=== PATIENT | male | born 1980 | race Caucasian/White ===

== ENCOUNTER 2017-04-14 12:49 | Emergency (ER) | payer OTHER ==
[2017-04-14] MEDS ORDERED: MOTRIN 600 MG ONE (13:36)
--- NOTE | 2017-04-14 13:51 | ERPHSYRPT ---
- History of Present Illness Time Seen by Provider: 04/14/17 13:21 Source: patient Patient Subjective Stated Complaint: Pt states "My left shoulder has been going in and out for the past two years and last night I was moving stuff and I felt something tear and now it really hurts." Triage Nursing Assessment: PT alert and oriented X 3, skin pwd. pt ambulates without difficulty, able to speak in clear full sentences. PT left shoulder has slight swelling noted anterioroly, csm X 4, tender to touch Physician History: CC: left shoulder injury Hx: 36 y/o patient recently moved here from [place]. He is working at [employer] and hopes to transfer to the [employer]. His 's family lives here and needed help. He has had shoulder pain in the past. Last night was carrying something and had pain and a pop in the left posterior shoulder. No N/T/W. He does not like shots or needles. No prior shoulder surgery. No other injuries. Occurred: yesterday Severity of Pain-Max: moderate Severity of Pain-Current: moderate Extremities Pain Location: shoulder: left Allergies/Adverse Reactions: No Known Drug Allergies Allergy (Unverified 04/14/17 13:20) Hx Tetanus, Diphtheria Vaccination/Date Given: Yes Hx Influenza Vaccination/Date Given: No Hx Pneumococcal Vaccination/Date Given: No Immunizations Up to Date: Yes - Review of Systems Constitutional: No Symptoms Respiratory: No Dyspnea Abdominal/Gastrointestinal: No Nausea, No Vomiting Musculoskeletal: Injury (left posterior shoulder), No Back Pain, No Neck Pain Neurological: No Focal Weakness, No Headache, No Parasthesia - Past Medical History Pertinent Past Medical History: No - Past Surgical History Past Surgical History: No - Social History Smoking Status: Current every day smoker How long have you smoked: 20 year Exposure to second hand smoke: Yes Drug Use: none Patient Lives Alone: No - Nursing Vital Signs Nursing Vital Signs: Initial Vital Signs Temperature 98.2 F 04/14/17 13:15 Pulse Rate 84 04/14/17 13:15 Respiratory Rate 16 04/14/17 13:15 Blood Pressure 138/73 04/14/17 13:15 O2 Sat by Pulse Oximetry 100 04/14/17 13:15 Pain Scale Pain Intensity 4 - Physical Exam General Appearance: alert Eyes, Ears, Nose, Throat Exam: moist mucous membranes Neck Exam: normal inspection, non-tender, supple Cardiovascular/Respiratory Exam: chest non-tender, normal breath sounds, regular rate/rhythm Abdominal Exam: non-tender, soft Back Exam: normal inspection, No vertebral tenderness Shoulder Exam: swelling (left trapezius area, knotted muscle, limited left shoulder ROM, no elbow or wrist tenderness) Neuro/Tendon Exam: normal sensation, normal motor functions Mental Status Exam: alert, oriented x 3, cooperative Skin Exam: warm, dry, No rash SpO2 Interpretation: normal SpO2: 100 Oxygen Delivery: Room Air - Course Nursing assessment & vital signs reviewed: Yes - Radiology Exams left shoulder/scapula X-ray Interpretation: Teleradiologist Report, No Fracture (? AC sprain) Ordered Tests: Active Orders 24 hr Category Date Time Status Cold Application STAT Care 04/14/17 13:25 Active Sling Application STAT Care 04/14/17 13:25 Active SCAPULA Stat Exams 04/14/17 13:55 Completed SHOULDER Stat Exams 04/14/17 13:26 Completed Medication Summary Discontinued Medications Generic Name Dose Route Start Last Admin Trade Name Wei PRN Reason Stop Dose Admin Ibuprofen 600 mg 04/14/17 13:25 04/14/17 13:52 Motrin 600 Mg PO 04/14/17 13:26 600 mg STAT ONE Administration Ibuprofen Confirm 04/14/17 13:36 Motrin 600 Mg Administered 04/14/17 13:37 Dose 600 mg .ROUTE .STK-MED ONE Orphenadrine Citrate 100 mg 04/14/17 13:26 04/14/17 13:52 Norflex 100 Mg Tablet PO 04/14/17 13:27 100 mg STAT ONE Administration - Progress Progress Note: 04/14/17 14:43 He declined injection or needles here. He has torn the left trapezius. Advised sling briefly, ice, rest, Motrin, Norflex. Instr given. Referral sheet given. Counseled pt/family regarding: diagnosis, need for follow-up, rad results - Departure Time of Disposition: 14:43 Departure Disposition: Home Clinical Impression: Strain of left trapezius muscle Qualifiers: Encounter type: initial encounter Qualified Code(s): S46.812A - Strain of other muscles, fascia and tendons at shoulder and upper arm level, left arm, initial encounter Condition: Stable Critical Care Time: No Referrals: DOCTOR,NO FAMILY [Primary Care Provider] - NERIS CROWDER MD [COURTESY STAFF] - GERRY CARCAMO [ACTIVE STAFF] - Instructions: Shoulder Sprain (DC) Additional Instructions: Left shoulder sling briefly. Rx ibuprofen. Rx norflex- no driving or operating machinery. Ice packs off and on. Follow up with orthopedics or family doctor this week. Prescriptions: Ibuprofen 600 mg PO Q6H PRN PRN #24 tablet PRN Reason: Pain Orphenadrine Citrate 100 mg [Norflex 100 MG Tablet] 1 tab PO BID #10 tab
[2017-04-14] MEDS: MOTRIN 600 MG PO ONE (13:52)
[2017-04-14] MEDS: Norflex 100 MG Tablet PO ONE (13:52)
--- NOTE | 2017-04-14 14:21 | XRAY ---
Indication: Pain following injury. Comparison: None 3 views of the left shoulder demonstrates acromial process depression relative to the clavicle possibly acromioclavicular sprain injury. No other bony, articular, or soft tissue abnormalities.
--- NOTE | 2017-04-14 14:23 | XRAY ---
Indication: Pain following injury. Comparison: None 2 views of the left scapula demonstrates acromial process depression relative to the clavicle possibly acromioclavicular sprain injury. No other bony, articular, or soft tissue abnormalities.
[2017-04-14 14:57] VITALS: BP 118/82; PULSE 88; O2SAT 98
== END 2017-04-14 14:57 | disposition home or self-care (01) ==
LOC: ED 12:49
DX: S46.812A Strain of other muscles, fascia and tendons at shoulder and upper arm level, left arm, initial encounter (principal); Z72.0 Tobacco use; X50.0XXA Overexertion from strenuous movement or load, initial encounter; Y93.89 Activity, other specified; Y92.9 Unspecified place or not applicable; Y99.9 Unspecified external cause status
CPT/HCPCS: 73010; 73030; 99283; A9270-GY

== ENCOUNTER 2020-01-24 11:26 | Emergency (ER) | payer SELFPAY ==
[2020-01-24] MEDS ORDERED: DECADRON 10MG INJ. IM ONE (11:54)
[2020-01-24] MEDS ORDERED: TORAdol 30 mg Injection IM ONE (11:55)
[2020-01-24] MEDS ORDERED: TORAdol 30 mg Injection ONE (11:56)
[2020-01-24] MEDS ORDERED: DECADRON 10MG INJ. ONE (11:56)
--- NOTE | 2020-01-24 12:02 | ERPHSYRPT ---
- History of Present Illness Time Seen by Provider: 01/24/20 11:40 Source: patient Exam Limitations: no limitations Patient Subjective Stated Complaint: Left shoulder pain Triage Nursing Assessment: Patient ambulated back to ED and transferred self to bed. Patient A+O X3. Patient's skin pink, warm and dry. Patient complains of left shoulder pain 8/10 for 10 days. Patient states he was lifting at work when the shoulder started hurting. Patient has tried OTC pain meds with no relief. Patient states he is having occasional numbness in neck and his left arm with tingle and go numb. Pulses present. Physician History: Patient is a 39-year-old male presents to our ED with complaints of left shoulder pain. Pain started approximately 10 days ago while he was performing a pulling action with his left upper extremity at work. Pain described as an ache that is localized to his left shoulder. Pain reproduced with movement and palpation. Pain improved with rest. Pain is not associated with any cardiovascular symptomology. No associated nausea or vomiting. No diaphoresis. No pain with deep inspiration. No trauma. No fever. No chest pain or shortness of breath patient occasionally feels a numbing sensation in his fingers. Symptoms are mild to moderate in intensity. Patient is a smoker. We will perform a screening EKG although the history and physical exam point towards a musculoskeletal etiology to his pain. Patient voices no other complaints concerns at this time. Occurred: days ago (10 days) Method of Injury: other (Patient was performing a pulling activity with his left upper extremity at the time of onset of pain.) Quality: intermittent Severity of Pain-Max: moderate Severity of Pain-Current: mild Extremities Pain Location: shoulder: left Modifying Factors: Improves With: movement (Palpation) Associated Symptoms: none, No chills, No chest discomfort Allergies/Adverse Reactions: No Known Drug Allergies Allergy (Verified 01/24/20 11:37) Hx Tetanus, Diphtheria Vaccination/Date Given: Yes Hx Influenza Vaccination/Date Given: No Hx Pneumococcal Vaccination/Date Given: No Immunizations Up to Date: Yes Travel Risk - International Travel Have you traveled outside of the country in past 3 weeks: No - Coronavirus Screening Are you exhibiting any of the following symptoms?: No Close contact with a COVID-19 positive Pt in past 14-21 Days: No - Review of Systems Constitutional: No Symptoms, No Fever, No Chills Eyes: No Symptoms Ears, Nose, & Throat: No Symptoms Respiratory: No Symptoms, No Cough, No Dyspnea Cardiac: No Symptoms, No Chest Pain, No Edema, No Syncope Abdominal/Gastrointestinal: No Symptoms, No Abdominal Pain, No Nausea, No Vomiting, No Diarrhea Genitourinary Symptoms: No Symptoms, No Dysuria Musculoskeletal: No Symptoms, No Back Pain, No Neck Pain Skin: No Symptoms, No Rash Neurological: No Symptoms, No Dizziness, No Focal Weakness, No Sensory Changes Psychological: No Symptoms Endocrine: No Symptoms Hematologic/Lymphatic: No Symptoms Immunological/Allergic: No Symptoms All Other Systems: Reviewed and Negative - Past Medical History Pertinent Past Medical History: No - Past Surgical History Past Surgical History: No - Social History Smoking Status: Current every day smoker How long have you smoked: 20 year Exposure to second hand smoke: No Drug Use: none Patient Lives Alone: Yes - Nursing Vital Signs Nursing Vital Signs: Initial Vital Signs Temperature 97.9 F 01/24/20 11:38 Pulse Rate 93 H 01/24/20 11:38 Respiratory Rate 18 01/24/20 11:38 Blood Pressure 114/74 01/24/20 11:38 O2 Sat by Pulse Oximetry 98 01/24/20 11:38 Pain Scale Pain Intensity 8 - Physical Exam General Appearance: no apparent distress, alert Eyes, Ears, Nose, Throat Exam: moist mucous membranes Neck Exam: normal inspection, non-tender, supple Cardiovascular/Respiratory Exam: chest non-tender, normal breath sounds, regular rate/rhythm, no respiratory distress Abdominal Exam: non-tender, No guarding Back Exam: normal inspection, No vertebral tenderness Shoulder Exam: normal inspection, no evidence of injury, limited ROM (Range of motion limited due to pain. Palpation of the upper trapezius and posterior deltoid reproduce symptoms.), soft tissue tenderness, No non-tender, No normal ROM (Range of motion limited due to pain.) Elbow/Forearm Exam: normal inspection, non-tender, no evidence of injury, normal ROM Hand Exam: normal inspection, non-tender, no evidence of injury, normal ROM Neuro/Tendon Exam: normal sensation, normal motor functions Mental Status Exam: alert, oriented x 3, cooperative Skin Exam: normal color, warm, dry SpO2 Interpretation: normal SpO2: 98 O2 Delivery: Room Air - Course Nursing assessment & vital signs reviewed: Yes EKG Interpreted by Me: RATE (67), Sinus Rhythm, NORMAL AXIS, NORMAL INTERVALS - Radiology Exams Shoulder X-ray Interpretation: Teleradiologist Report (No fractures or dislocations.) Ordered Tests: Active Orders 24 hr Category Date Time Status EKG-ER Only STAT Care 01/24/20 11:50 Active SHOULDER Stat Exams 01/24/20 11:53 Ordered Medication Summary Discontinued Medications Generic Name Dose Route Start Last Admin Trade Name Wei PRN Reason Stop Dose Admin Dexamethasone Sodium Phosphate 8 mg 01/24/20 11:54 01/24/20 11:57 Decadron 10mg Inj. IM 01/24/20 11:55 8 mg STAT ONE Administration Dexamethasone Sodium Phosphate Confirm 01/24/20 11:56 Decadron 10mg Inj. Administered 01/24/20 11:57 Dose 10 mg .ROUTE .STK-MED ONE Ketorolac Tromethamine 60 mg 01/24/20 11:55 01/24/20 11:58 Toradol 30 Mg Injection IM 01/24/20 11:56 60 mg STAT ONE Administration Ketorolac Tromethamine Confirm 01/24/20 11:56 Toradol 30 Mg Injection Administered 01/24/20 11:57 Dose 60 mg .ROUTE .STK-MED ONE - Progress Progress: improved Progress Note: 01/24/20 12:02 Patient reassessed. Pain improved. Patient received a dose of Decadron and Toradol for pain. Patient also received a shoulder sling for comfort. X-ray negative for acute pathology. Physical exam suggestive of muscle strain. If symptoms do not improve with rest and anti-inflammatory patient may consider an MRI of his left shoulder for possible rotator cuff injury. Plan of care discussed with patient. He agrees to follow-up with his primary care doctor within 48 hours for reevaluation. Counseled pt/family regarding: diagnosis, need for follow-up, rad results - Departure Departure Disposition: Home Clinical Impression: Muscle strain Condition: Stable Critical Care Time: No Referrals: DOCTOR,NO FAMILY [Primary Care Provider] - OTIS VAUGHN MD [ACTIVE STAFF] - Additional Instructions: Discharge/Care Plan SUNNI DE LA ROSA was seen on 01/24/20 in the Emergency Room. The patient was counseled regarding Diagnosis,Lab results, Imaging studies, need for follow up and when to return to the Emergency Room. Prescriptions given: Discharge Note I have spoken with the patient and/or caregivers. I have explained the patient's condition, diagnosis and treatment plan based on the information available to me at this time. I have answered the patient's and/or caregiver's questions and addressed any concerns. The patient and/or caregivers have as good understanding of the patient's diagnosis, condition and treatment plan as can be expected at this point. The vital signs have been stable. The patient's condition is stable and appropriate for discharge from the emergency department. The patient will pursue further outpatient evaluation with the primary care physician or other designated or consulting physician as outlined in the discharge instructions. The patient and/or caregivers are agreeable to this plan of care and follow-up instructions have been explained in detail. The patient and/or caregivers have received these instruction. The patient/and or caregivers are aware that any significant change in condition or worsening of symptoms should prompt an immediate return to this or the closest emergency department or call 911. Prescriptions: Ketorolac Tromethamine [Toradol] 10 mg PO TID 5 Days #15 tablet
--- NOTE | 2020-01-24 12:29 | XRAY ---
Indication: Pain following injury 10 days ago. Comparison: April 14, 2017. 3 view left shoulder obtained. No bony, articular, or soft tissue abnormalities.
[2020-01-24 12:49] VITALS: BP 110/72; PULSE 88; O2SAT 96
== END 2020-01-24 12:49 | disposition home or self-care (01) ==
LOC: ED 11:26
DX: M25.512 Pain in left shoulder (principal); S46.912A Strain of unspecified muscle, fascia and tendon at shoulder and upper arm level, left arm, initial encounter; R20.0 Anesthesia of skin; X50.3XXA Overexertion from repetitive movements, initial encounter; F17.210 Nicotine dependence, cigarettes, uncomplicated
CPT/HCPCS: 73030; 93005; 96372; 99284; J1100; J1885